=== PATIENT | female | born 1990 | race Two or more races ===

== ENCOUNTER 2020-02-21 21:19 | Emergency (ER) | payer OTHER ==
[~2020-02-21] VITALS: Ht 160 cm; Wt 68.0 kg
--- NOTE | 2020-02-21 21:50 | NUR ---
C/O COUGH AND SOB X3MIN [employer]. PT AAOX4, VSS. DENIES CP, DIZZINESS, N/V AT THIS TIME. PT SEEN & EVAL'D BY HAYLEY BRYAN. WILL CONT TO MONITOR.
[2020-02-21] MEDS ORDERED: predniSONE 20 MG TABLET ONE (21:59)
[2020-02-21] MEDS ORDERED: IPRATROPIUM NEB FS 0.5 MG/2.5 ML AMPUL.NEB NEB ONE ×2 (22:00→23:00)
[2020-02-21] MEDS ORDERED: predniSONE 20 MG TABLET PO ONE (22:00)
[2020-02-21] MEDS ORDERED: ALBUTEROL FS 2.5 MG/3 ML VIAL.NEB NEB ONE ×2 (22:00→23:00)
--- NOTE | 2020-02-21 22:02 | NUR ---
MEDICATED PER ERMD ORDER, PT RENÉE WELL.
[2020-02-21] MEDS ORDERED: ALBUTEROL FS 2.5 MG/3 ML VIAL.NEB ONE ×2 (22:17→22:45)
[2020-02-21] MEDS ORDERED: IPRATROPIUM NEB FS 0.5 MG/2.5 ML AMPUL.NEB ONE ×2 (22:17→22:45)
--- NOTE | 2020-02-21 22:24 | NUR ---
BREATHING TX IN PROGRESS
--- NOTE | 2020-02-21 22:25 | NUR ---
RT called for neb tx. pt is sitting in bed, on RA, sat 95%. lung sounds expiratory wheeze on left side. pt states pt has inhaler but it is not able to alleviate sob like normal.
--- NOTE | 2020-02-21 22:49 | NUR ---
RT post 1st tx, pt states she feels better breathing but still has some tightness. pt has moderate air movement with diminished wheezing throughout. pt receiving 2nd tx. will continue to monitor.
--- NOTE | 2020-02-21 23:17 | NUR ---
Patient discharged to home in stable condition. Written and verbal after care instructions given. Patient verbalizes understanding of instruction.
[2020-02-21 23:18] VITALS: BP 128/80
== END 2020-02-21 23:19 | disposition home or self-care (01) ==
LOC: ER 21:27
DX: J98.01 Acute bronchospasm (principal)
CPT/HCPCS: 94640 ×2; 99285; J7512